=== PATIENT | female | born 1990 | race Caucasian/White ===

== ENCOUNTER 2021-01-22 15:25 | Outpatient (CLI) | payer OTHER, SELFPAY ==
[2021-01-22 16:20] LABS: Hematocrit 32.5 % (37.0-47.0); Hemoglobin 10.3 g/dL (12.0-15.0); Mean Corpuscular HGB Conc 31.7 g/dl (32-36); Mean Corpuscular Hemoglobin 26.2 pg (26-34); Mean Corpuscular Volume 82.7 fl (80-100); Mean Platelet Volume 9.3 fl (7.4-10.4); Platelet Count Result 322 k/mm3 (150-375); Red Blood Count 3.93 M/mm3 (4.2-5.4); Red Cell Distribution Width 15.6 % (11.5-14.5)
[2021-01-23 08:39] LABS: Rapid Plasma Reagin Non-Reactive (NonReactive)
== END 2021-01-22 15:26 | disposition home or self-care (01) ==
PROVIDERS: PCP Obstetrics & Gynecology; Visit Provider Obstetrics & Gynecology
DX: Z34.93 Encounter for supervision of normal pregnancy, unspecified, third trimester (principal); Z3A.00 Weeks of gestation of pregnancy not specified
CPT/HCPCS: 36415; 85027; 86592; 86850; 86900; 86901

== ENCOUNTER 2021-01-23 10:12 | Inpatient (IN) | payer OTHER, SELFPAY ==
[2021-01-23] VITALS (41 sets, daily range): BP systolic 90–116; BP diastolic 39–66; PULSE 62–100; RESP 14–20; TEMP 36.2–36.4; O2SAT 94–100; BMI 29.4
--- NOTE | 2021-01-23 06:00 | PM.IMHP ---
H&P: [facility] History of Present Illness Date/Time: 01/23/21 06:00 30 y/o F at 39w4d gestation w/ complicated by malpresentation with transverse lie, genital herpes, hypothyroidism, and mild polyhydramnios and adjustment disorder with depressed mood presents for primary low transverse c section under spinal anesthesia on 01/23/21@1200noon I explained her condition procedure and risks involved including but not limited to bleeding infection injury to bladder or bowel baby pelvic vessels DVT pneumonia wound infection endometritis UTI and the risk of anesthesia she understands all this except and agrees to proceed. Informed consent obtained. Chief Complaint: malpresentation transverse lie term elective primary low-transverse section Review of Systems Review of Systems: All systems reviewed & are unremarkable except as noted in HPI and below Constitutional: Constitutional: Reports no additional constitutional complaints Eyes: Eyes: Reports no additional eye complaints ENT: Reports system reviewed and no additional complaints, except as documented Cardiovascular: Cardiovascular: Reports no additional cardiovascular complaints Respiratory: Respiratory: Reports no additional respiratory complaints Gastrointestinal: Gastrointestinal: Reports no additional gastrointestinal complaints Genitourinary: Genitourinary: Reports no additional female genitourinary complaints Musculoskeletal: Musculoskeletal: Reports no additional musculoskeletal complaints Integumentary/Breasts: Skin/Breast: Reports system reviewed and no additional complaints, except as docu Neurologic: Reports system reviewed and no additional complaints, except as documented Psychiatric: Psychiatric: Reports no additional psychiatric complaints Endocrine: Endocrine: Reports no additional endocrine complaints Hematologic/Lymphatic: Hematologic/Lymphatic: Reports no additional hematologic/lymphatic complaints Allergic/Immunologic: Allergic/Immunologic: Reports no additional allergic/immunologic complaints [facility] Past Medical History Medical History (Updated 01/23/21 @ 06:13 by Emigdio Huston MD) BV (bacterial vaginosis) Depression NICOL (generalized anxiety disorder) History of miscarriage 12/08/20185733882Igxikgbq, Spontaneous HSV (herpes simplex virus) infection Hypothyroidism Malpresentation of fetus Neuroma of right lower extremity after surgery Polyhydramnios Vaginal delivery 02/07/20151408 lbs.10.99 oz.MStandard Vaginal DeliveryFull Term [facility]Reg[facility] Ped[facility] was born in [place] Vaginal delivery Spontaneoushistorical 11/10/2019139.68 lbs.13 oz.MVaginalFull Term BirthWorthington [facility] CenterEpiduralWestern [facility] HospitalN Surgical History Surgical History (Updated 01/23/21 @ 06:13 by Emigdio Huston MD) History of dilatation and curettage 12/08/2018 Family History Family History Other Carcinoma of colon Cerebrovascular accident Depression Diabetes mellitus Heart disease Hypertension Social History Social History Smoking status: Never smoker Alcohol intake: former Alcohol use details: socially when not Substance use: never Living arrangements: with family Occupation/Education: unemployed Gender identity (if verbalized by the patient): Female Sexual Orientation (if Verbalized by the Patient): Straight or Heterosexual Spiritual care concerns: No Agree to blood products: Yes Meds Home Medications and Allergies Home Medications Medication Instructions Recorded Confirmed Type PNV no.[id number] See Rx Instructions .ROUTE .COMPLEX 01/17/21 01/17/21 History [ Gummies] aspirin 81 mg PO BID 01/17/21 01/17/21 History folic acid 1 mg PO DAILY 01/17/21 01/17/21 History levothyroxine 88 mcg PO DAILY 01/17/21
--- NOTE | 2021-01-23 06:08 | WPDHPUPDATE1 ---
History and Physical Update Update Date/Time: 01/23/21 06:08 History and Physical has been reviewed, including an updated exam of the patient. There are NO changes in the patient's condition. Risks, benefits, and alternatives have been discussed and questions answered. Patient agrees to proceed with procedure. 30 y/o F at 39w4d gestation w/ complicated by malpresentation with transverse lie, genital herpes, hypothyroidism, and mild polyhydramnios and adjustment disorder with depressed mood presents for primary low transverse c section under spinal anesthesia on 01/23/21@1200noon I explained her condition procedure and risks involved including but not limited to bleeding infection injury to bladder or bowel baby pelvic vessels DVT pneumonia wound infection endometritis UTI and the risk of anesthesia she understands all this except and agrees to proceed. Informed consent obtained.
--- NOTE | 2021-01-23 06:08 | WPDOBADMIT ---
Obstetrics - Admit Note Admission Note: record reviewed. No pertinent additions to the history and/or any subsequent changes in the physical findings that are not consistent with the expected course of the were found. Additions to the history and/or subsequent changes in the physical findings follow. None. 30 y/o F at 39w4d gestation w/ complicated by malpresentation with transverse lie, genital herpes, hypothyroidism, and mild polyhydramnios and adjustment disorder with depressed mood presents for primary low transverse c section under spinal anesthesia on 01/23/21@1200noon I explained her condition procedure and risks involved including but not limited to bleeding infection injury to bladder or bowel baby pelvic vessels DVT pneumonia wound infection endometritis UTI and the risk of anesthesia she understands all this except and agrees to proceed. Informed consent obtained.
--- NOTE | 2021-01-23 11:08 | LDADM ---
This patient, Samantha Lovelace, was admitted to OB Post 116 on 01/23/21 at 10:12. Plans for labor, pain management and were discussed with patient. Patient/family oriented to hospital policies and general routines including ID bracelet, bed and alarms, visiting hours, pain management, procedures, bathroom and other care routines, personal items, smoking policy, room service/diet and guest tray routines, security routines, and visiting hours. Patient/Family are encouraged to report perceived risks to care and to ask questions if they do not understand what they are told or what they should do. See OBIX for further documentation.
[2021-01-23] MEDS: LACTATED RINGERS 1,000 ML 125 ML IV CONT ×2 (11:12→13:30)
--- NOTE | 2021-01-23 11:51 | WPDANESEPPF ---
Anes - Initial Pre Proc Eval Procedure: Operation Date: 01/23/21 12:00 Proposed Procedures p Primary Section - Emigdio Huston MD Date/Time: 01/23/21 11:51 Surgeon: Emigdio Huston MD Pre Op Diagnosis: c/s Patient Data Age: 30 Gender: F Height: 5 ft 2 in Weight: 73 kg Last Vital Signs Pulse 100 01/23/21 10:48 BP 116/63 01/23/21 10:48 Allergies Allergy/AdvReac Type Severity Reaction Status Date / Time No Known Allergies Allergy Verified 01/17/21 13:06 Home Medications Medication Instructions Recorded Confirmed Type PNV no.[id number] See Rx Instructions .ROUTE .COMPLEX 01/17/21 01/23/21 History [ Gummies] aspirin 81 mg PO BID 01/17/21 01/23/21 History folic acid 1 mg PO DAILY 01/17/21 01/23/21 History levothyroxine 88 mcg PO DAILY 01/17/21 01/23/21 History progesterone micronized 200 mg VAGINAL BID 01/17/21 01/23/21 History valacyclovir 800 mg PO DAILY 01/17/21 01/23/21 History Laboratory Tests 01/23/21 10:55 HIV 1&2 Ab/P24 Ag 4thGn Pending Patient hx anesthesia problems: none Family hx anesthesia problems: none PMFSH Past Medical History Medical History BV (bacterial vaginosis) Depression NICOL (generalized anxiety disorder) History of miscarriage 12/08/20185054816Kdnckpfu, Spontaneous HSV (herpes simplex virus) infection Hypothyroidism Malpresentation of fetus Neuroma of right lower extremity after surgery Polyhydramnios Vaginal delivery 02/07/20151408 lbs.10.99 oz.MStandard Vaginal DeliveryFull Term BirthRegionalEpiduralRobert [facility] Tien Pedraza was born in [place] Vaginal delivery Spontaneoushistorical 11/10/2019139.68 lbs.13 oz.MVaginalFull Term BirthRegionalEpiduralMemorial [facility]N Surgical History Surgical History History of dilatation and curettage 12/08/2018 Family History Family History Other Carcinoma of colon Cerebrovascular accident Depression Diabetes mellitus Heart disease Hypertension Social History Social History Smoking status: Never smoker Alcohol intake: former Alcohol use details: socially when not Substance use: never Living arrangements: with family Occupation/Education: unemployed Gender identity (if verbalized by the patient): Female Sexual Orientation (if Verbalized by the Patient): Straight or Heterosexual Spiritual care concerns: No Agree to blood products: Yes Anes - Eval Final PreProcedure Day of Procedure 01/23/21 11:51 Patient weight: overweight Heart: regular rate and rhythm Lungs: clear to auscultation Airway: Mallampati scale class II Neurological: alert and oriented Last oral intake: >/= 8 hours ASA classification: II Emergent: no Anesthetic plan: proceed Anesthesia type and monitoring: regional spinal and standard monitoring Informed Consent: The patient's anesthetic plan and its attendant risks and benefits were discussed with the patient/family/POA. Questions were solicited and answers provided to the satisfaction of the patient/family/POA.
[2021-01-23 11:55] LABS: HIV 1/2 Ab P24 Ag Result Negative (Negative)
[2021-01-23] MEDS: OXYTOCIN 10 UNITS/ML VIAL IM (12:25)
--- NOTE | 2021-01-23 13:14 | P.PCNOB_ITS ---
OB - Delivery Note Procedure Delivery date: 01/23/21 Procedure: Procedures Operation Date: 01/23/21 12:00 Primary low-transverse section with delivery of viable male and placenta events: Polyhydramnios ( malpresentation transverse lie) Intrapartal events: None Induction method: none Delivery monitor: external FHT and external uterine Route of delivery: (Elective primary low-transverse section with delivery of viable male and placenta) Episiotomy description: None Laceration Description: None Specimen: Yes (Placenta, cord blood, cord gases) Quantitative Blood Loss (ml): 500 Anesthesia type: Spinal (Duramorph) Disposition: floor Complications: None Narrative: See operative [place] Baby Date of : 01/23/21 Time of : 12:23 Weeks of gestation at delivery: 39 Infant gender: Male (Yunier) Weight (pounds): 7 Weight (ounces): 14 presentation: transverse position: Transverse Placenta delivery description: Manual Removal and Normal Configuration cord vessel description: 3 Vessels score one minute: 8 score five minutes: 9 Narrative: Normal transition normal exam spontaneous respirations and cry taken to the nursery in stable condition
--- NOTE | 2021-01-23 13:18 | PM.PROC ---
Procedure Note - Detailed Date of procedure: 01/23/21 Pre-op diagnosis: c/s Term malpresentation-transverse lie Elective primary low-transverse section Hypothyroidism Polyhydramnios History of miscarriage NICOL Depression Post-op diagnosis: same (Term delivered viable male normal placenta) Procedure performed: Elective primary low-transverse section with delivery of viable male and placenta Description of procedure: Informed consent obtained patient was taken to the operating room where spinal anesthetic with Duramorph was given and the patient was placed in the supine position. A Crystal catheter was inserted. The abdomen was prepped and then draped in the usual sterile fashion with a traxi device utilized. Anesthesia Meter was used to confirm adequate analgesia. A time-out was performed. A Pfannenstiel incision was made to the skin and the abdomen was opened in layers using electrocautery the fascia was entered bilaterally undermined inferiorly and superiorly with the rectus muscles then in the midline. Vesicouterine peritoneal reflection was incised transversely a transverse incision was made to the uterus and extended bilaterally digitally. The position was being transverse was then converted into the vertex presentation with the vertex and being delivered via the uterine and abdominal incision and the nose and throat were bulb suction the cord was clamped and cut and the baby was handed to the nursery nurse in attendance. scores given were 8 and 9 baby born at 12:23 p.m. weighing 7 lb 14 oz 19 in long. The placenta was then delivered intact with a 3 vessel cord after cord gases and cord blood obtained. The uterus was externalized blood clots membranes removed from the intrauterine cavity. The uterus contracted well with Pitocin given intravenously as well as 10 units into the myometrium. The uterine incision was then repaired in 2 layers with 0 Vicryl in a running interlocking fashion and along the left lower uterine segment the uterine artery was controlled with several [id number] sutures and hemostasis resulted. The vesicouterine peritoneal reflection was reapproximated 0 Vicryl suture in a running fashion. Blood clots removed from the cul-de-sac and both lateral gutters. The uterus was returned to the peritoneal cavity the sponge needle and instrument counts correct. The anterior peritoneum and rectus muscles reapproximated midline with 0 Vicryl suture in a running fashion the fascia was then closed with 2. Quill S RS system bilaterally. The Juan's fascia was reapproximated 3 0 plain in a running fashion. The skin was closed with absorbable staple device IN SORB. Skin was covered with Dermabond and then a Mepilex dressing was placed across the incision the Crystal catheter was secured the patient was then taken to the recovery room stable condition the sponge needle instrument counts correct patient tolerated the procedure well. Implants: None Anesthesia: spinal (Duramorph) Surgeon: Emigdio Huston MD Manager Language: carpenter's assistant x2 Estimated blood loss (mL): 500 IV fluids (mL): 2,000 Urine output (mL): 300 Drains: No Packing: No Pathology: yes (Placenta, cord blood, cord blood gases) Complications: None Condition: stable Disposition: floor Findings: Viable male name is karlene born at 12:23 p.m. on 01/23/2020 spontaneous respirations and cry Apgars 8 and 9 at 1 and 5 minutes weight 7 lb 14 oz length 19 in normal transition normal exam taken to the nursery stable condition Placenta intact three-vessel cord Counts correct Complications none VTE prevention SCDs Antibiotic prophylaxis Ancef 2 g Uterus tubes ovaries normal hemostasis excellent along the uterine incision transverse upper abdomen clean Breast feeding Pulverizer Tender is Dr. Prajapati To recovery room stable condition
[2021-01-23] MEDS: ONDANSETRON INJ 4 MG/2 ML VIAL IV PUSH ×2 (13:31→16:56)
[2021-01-23] MEDS: OXYTOCIN 30 UNITS/NS 500 ML 30 UNITS/500 ML BAG 125 UNITS IV CONT (15:12)
[2021-01-23] MEDS: KETOROLAC 30 MG/ML VIAL (*BKC) IV PUSH ×2 (15:14→21:18)
--- NOTE | 2021-01-23 15:27 | PC.NURSE ---
Patient transferred to post room #290 per stretcher from labor and delivery. Support person present. Oriented to unit, room, information board, rooming in, admission packet and security measures. Patient verbalizes understanding.
[2021-01-23] MEDS: HYDROcodone/acetaminophen (*CRX) 5-325 MG TABLET 1 TAB PO (17:43)
[2021-01-23] MEDS: DEXTROSE 5%/0.45% SOD CHL 1,000 ML 125 ML IV CONT (20:09)
[2021-01-24] VITALS: BP 111/51; PULSE 88; RESP 18; TEMP 37.1; O2SAT 96
[2021-01-24] MEDS: KETOROLAC 30 MG/ML VIAL (*BKC) IV PUSH (03:19)
[2021-01-24 04:36] VITALS: BP 114/77; PULSE 79; PULSE 88; RESP 18; TEMP 36.9; O2SAT 96; O2SAT 98
[2021-01-24 06:00] LABS: Basophils Percent Auto 0.2 % (0.2-1.2); Eosinophils Absolute Auto 0.1 K/mm3 (0-0.3); Eosinophils Percent Auto 0.8 % (0-4.4); Hematocrit 25.1 % (37.0-47.0); Hemoglobin 7.6 g/dL (12.0-15.0); Immature Granulocyte Absolute 0.07 K/mm3 (0.00-0.031); Immature Granulocyte Percent A 0.6 % (0-0.5); Lymphocytes Absolute Auto 1.39 K/mm3 (0.9-3.2); Lymphocytes Percent Auto 11.8 % (18.3-44.2); Mean Corpuscular HGB Conc 30.3 g/dl (32-36); Mean Corpuscular Hemoglobin 26.1 pg (26-34); Mean Corpuscular Volume 86.3 fl (80-100); Mean Platelet Volume 9.8 fl (7.4-10.4); Monocytes Absolute Auto 1.2 K/mm3 (0.1-0.6); Monocytes Percent Auto 10.4 % (2.6-8.5); Neutrophils Percent Auto 76.2 % (45.5-73.1); Platelet Count Result 245 k/mm3 (150-375); Red Blood Count 2.91 M/mm3 (4.2-5.4); Red Cell Distribution Width 15.8 % (11.5-14.5); White Blood Count 11.8 K/mm3 (4.5-10.0)
[2021-01-24] MEDS: LEVOTHYROXINE SODIUM 88 MCG TABLET PO (07:19)
--- NOTE | 2021-01-24 07:38 | PM.OBPNVD ---
OB - PN: Subj Subjective Date/time seen: 01/24/21 07:38 Interval history: POD1 primary c/section for malpresentation transverse lie Patient comments: no complaints, pain well controlled and tolerating diet [place] baby status: doing well and nursing well [place] feeding status: exclusively breast feeding OB - PN: Obj Data Labs CBC & Chem 7: 01/24/21 03:59 Labs: Laboratory Results - last 24 hr 01/23/21 01/23/21 01/24/21 10:55 10:55 03:59 WBC 11.8 H RBC 2.91 L Hgb 7.6 L Hct 25.1 L MCV 86.3 MCH 26.1 MCHC 30.3 L RDW 15.8 H Plt Count 245 MPV 9.8 Immature Gran % (Auto) 0.6 H Neut % (Auto) 76.2 H Lymph % (Auto) 11.8 L Cook % (Auto) 10.4 H Eos % (Auto) 0.8 Baso % (Auto) 0.2 Lymph # (Auto) 1.39 Cook # (Auto) 1.2 H Eos # (Auto) 0.1 Baso # (Auto) 0.0 Abs Immat Gran (auto) 0.07 H Absolute Neuts (auto) 9.0 H Absolute Nucleated RBC 0.0 Nucleated RBC % 0.0 Urine Opiates Screen Cancelled Urine Methadone Screen Cancelled Ur Barbiturates Screen Cancelled Ur Phencyclidine Scrn Cancelled Ur Amphetamine Screen Cancelled U Benzodiazepines Scrn Cancelled Urine Cocaine Screen Cancelled U Cannabinoids Screen Cancelled HIV 1&2 Ab/P24 Ag 4thGn Negative OB - PN A/P Assessment and Plan (1) Term delivered: Code(s): O80 - Encounter for full-term uncomplicated delivery Status: Acute (2) Delivery by elective section: Code(s): O82 - Encounter for delivery without indication Status: Acute (3) Malpresentation of fetus: Code(s): O32.9XX0 - Maternal care for malpresentation of fetus, unspecified, not applicable or unspecified Status: Acute Time Spent With Patient Time: Total time spent is greater than 50% in coordination of care (as documented) at patient's floor/unit and/or counseling patient: Review of Systems Review of Systems: All systems reviewed & are unremarkable except as noted in HPI and below Exam Const: General: cooperative, healthy appearing, comfortable, no acute distress, well developed, alert, awake and Physically active Nutritional Appearance: average body habitus and well nourished Orientation/consciousness: patient oriented x3 Limitations: no limitations HENMT: Head: normal to inspection Eyes: General: appearance normal, both eyes and all related structures Neck: Neck: normal visual inspection Chest: Chest palpation & inspection: normal inspection of the chest Resp: Effort & Inspection: normal respiratory effort Cardio: Rate: regular rate Rhythm: regular rhythm GI: Inspection: normal to inspection and incision (DDI) GI Palp: Yes Soft to palpation Percussion: Yes normal to percussion Auscultation: normal bowel sounds : External Female Exam: normal external appearance Back/Spine/Pelvis: Back: no CVA tenderness Skin: General skin exam: normal color Neuro: General: patient oriented x3, gait normal, tone normal and moves all extremities Extrem: General: normal to inspection, full ROM, no clubbing, cyanosis or edema and no calf tenderness Psych: Appearance: grossly normal Mental Status: mental status grossly normal Speech and movement: Normal speech and movement present Affect: normal affect Attitude: cooperative Thought process: Normal thought process present Thought content: Yes Normal thought content present Insight: Good insight present (Psych) Judgement: Good judgement present (Psych)
[2021-01-24 07:50] VITALS: BP 106/58; PULSE 92; RESP 18; TEMP 37.2; O2SAT 100
--- NOTE | 2021-01-24 07:53 | WPDANLDPN2 ---
Anes-Prog Note L&D Date/Time: 01/24/21 07:53 Comfortable throughout: section Neuraxial method: spinal Epidural/Spinal procedure site: clean & non-tender Neuro status: Neuro function grossly intact. Cardiovascular status: normal Respiratory status: normal Airway patency: baseline Mental status: baseline Post-Op hydration status: normal Vital Signs: Last Vital Signs Temp 36.9 C 01/24/21 04:36 Pulse 88 01/24/21 04:36 Resp 18 01/24/21 04:36 BP 114/77 01/24/21 04:36 Pulse Ox 98 01/24/21 04:36 Pain score (VAS): 3 I/O: Intake & Output 01/23/21 01/23/21 01/24/21 15:59 23:59 07:59 Intake Total 2000 500 2200 Output Total 300 446 8156 Balance 1700 325 400 Post-procedural complaints: none Patient feedback: Patient satisfied with anesthetic care.
--- NOTE | 2021-01-24 07:53 | WPDANLDNPN2 ---
Anes-Prog Note L&D-Neuraxial Date/Time: 01/24/21 07:53 Neuraxial medications: intrathecal PF morphine Opiod-related complaints: none Patient feedback: Patient satisfied with post-operative pain management.
[2021-01-24] MEDS: HYDROcodone/acetaminophen (*CRX) 10-325 MG TABLET 1 TAB PO ×2 (08:50→20:55)
[2021-01-24] MEDS: MULTIVIT/MIN/PREN/FOL AC/IRON TABLET 1 TAB PO (08:51)
[2021-01-24] MEDS: POLYSACCHARIDE IRON COMPLEX 150 MG CAPSULE PO ×2 (08:51→17:30)
[2021-01-24] MEDS: DOCUSATE SODIUM 100 MG CAPSULE PO ×2 (08:51→17:30)
[2021-01-24] MEDS: ACYCLOVIR 400 MG TABLET 800 MG PO (08:52)
[2021-01-24] MEDS: ASPIRIN 81 MG CHEWABLE TABLET PO ×2 (08:52→17:30)
[2021-01-24] MEDS: FOLIC ACID 1 MG TABLET PO (08:52)
[2021-01-24 09:00] VITALS: PULSE 92; RESP 18; O2SAT 100
[2021-01-24] MEDS: IBUPROFEN 600 MG TABLET PO ×2 (12:05→17:31)
[2021-01-24] MEDS: HYDROcodone/acetaminophen (*CRX) 5-325 MG TABLET 1 TAB PO ×2 (12:06→17:30)
[2021-01-24 12:30] VITALS: BP 105/57; PULSE 99; RESP 18; TEMP 36.5; O2SAT 100
[2021-01-24 20:55] VITALS: BP 109/70; PULSE 87; RESP 18; TEMP 36.6; O2SAT 100
[2021-01-25] MEDS: HYDROcodone/acetaminophen (*CRX) 10-325 MG TABLET 1 TAB PO (07:04)
[2021-01-25] MEDS: IBUPROFEN 600 MG TABLET PO ×2 (07:04→12:56)
[2021-01-25] MEDS: LEVOTHYROXINE SODIUM 88 MCG TABLET PO (07:04)
[2021-01-25 07:57] VITALS: BP 98/58; PULSE 100; RESP 18; TEMP 36.9; O2SAT 100
[2021-01-25 08:00] VITALS: PULSE 100; RESP 18; O2SAT 100
--- NOTE | 2021-01-25 08:04 | PM.OBDSVD ---
DS: Admitting Diagnosis Admitting Diagnosis Admitting Diagnosis: ) Term : Code(s): Z34.90 - Encounter for supervision of normal , unspecified, unspecified trimester Status: Acute (2) Malpresentation of fetus: Code(s): O32.9XX0 - Maternal care for malpresentation of fetus, unspecified, not applicable or unspecified Status: Acute (3) Polyhydramnios: Code(s): O40.9XX0 - Polyhydramnios, unspecified trimester, not applicable or unspecified Status: Acute (4) History of miscarriage: Code(s): Z87.59 - Personal history of other complications of , childbirth and the puerperium Status: Acute (5) Delivery by elective section: Code(s): O82 - Encounter for delivery DS: Discharge Diagnosis Discharge Diagnosis (1) Term delivered: Code(s): O80 - Encounter for full-term uncomplicated delivery Status: Acute (2) Delivery by elective section: Code(s): O82 - Encounter for delivery without indication Status: Acute (3) Malpresentation of fetus: Code(s): O32.9XX0 - Maternal care for malpresentation of fetus, unspecified, not applicable or unspecified Status: Acute (4) Transverse lie of fetus: Code(s): O32.2XX0 - Maternal care for transverse and oblique lie, not applicable or unspecified Status: Acute (5) History of miscarriage: Code(s): Z87.59 - Personal history of other complications of , childbirth and the puerperium Status: Acute (6) Polyhydramnios: Code(s): O40.9XX0 - Polyhydramnios, unspecified trimester, not applicable or unspecified Status: Acute OB - DS: Summary Hospital Course Time spent discussing smoking cessation with patient: 3 to 10 minutes OB Procedures : Ultrasound OB Procedures Intrapartum: (Primary elective) low cervical, transverse OB Procedures: : None Peripartum Data Infant Delivery Method: Section (Elective primary low-transverse) Laceration Description: None Episiotomy description: None Procedures: Procedures Operation Date: 01/23/21 12:00 Elective primary low-transverse section with delivery of viable male and placenta complications: none 1: Gender: Male (Yunier) Disposition of : home Status at Discharge Functional status at discharge: independent ambulation Overall status at discharge: patient is back to baseline Time Spent with Patient Time attestation: Total time spent providing and/or coordinating discharge services: Time spent: Less than 30 minutes Exam Const: General: cooperative, healthy appearing, comfortable, no acute distress, well developed, alert, awake and Physically active Nutritional Appearance: average body habitus Orientation/consciousness: patient oriented x3 Limitations: no limitations HENMT: Head: normal to inspection Eyes: General: appearance normal, both eyes and all related structures Neck: Neck: normal visual inspection Chest: Chest palpation & inspection: normal inspection of the chest Resp: Effort & Inspection: normal respiratory effort Cardio: Rate: regular rate Rhythm: regular rhythm GI: Inspection: normal to inspection and incision (Clean dry and intact dressing) GI Palp: Yes Soft to palpation (Abdomen) Percussion: Yes normal to percussion Auscultation: normal bowel sounds : External Female Exam: normal external appearance Bimanual exam- vagina & uterus: non-tender Back/Spine/Pelvis: Back: no CVA tenderness Skin: General skin exam: normal color Neuro: General: patient oriented x3, gait normal, tone normal, moves all extremities, Normal light touch and pain sensation, no meningeal signs and no focal motor deficits Extrem: General: normal to inspection, full ROM and no calf tenderness Psych: Appearance: grossly normal Mental Status: mental status grossly normal Sp
[2021-01-25] MEDS: ACYCLOVIR 400 MG TABLET 800 MG PO (10:54)
[2021-01-25] MEDS: ASPIRIN 81 MG CHEWABLE TABLET PO (10:54)
[2021-01-25] MEDS: POLYSACCHARIDE IRON COMPLEX 150 MG CAPSULE PO (10:55)
[2021-01-25] MEDS: DOCUSATE SODIUM 100 MG CAPSULE PO (10:55)
[2021-01-25] MEDS: FOLIC ACID 1 MG TABLET PO (10:55)
[2021-01-25] MEDS: MULTIVIT/MIN/PREN/FOL AC/IRON TABLET 1 TAB PO (10:57)
[2021-01-25] MEDS: HYDROcodone/acetaminophen (*CRX) 5-325 MG TABLET 1 TAB PO (12:56)
--- NOTE | 2021-01-25 14:25 | PC.NURSE ---
Patient was given the opportunity to view the discharge video Mother & Baby Care, The First Two Weeks and to ask questions. Patient declined viewing the video and has been given the mother/baby guide for home reference.
== END 2021-01-25 14:55 | disposition home or self-care (01) | DRG 540 ==
LOC: ANHOBPP 10:18 → ANHOB2 15:51
PROVIDERS: Admitting Provider Obstetrics & Gynecology; Visit Provider Obstetrics & Gynecology
PROC: 10D00Z1 Extraction of Products of Conception, Low, Open Approach (ICD-10-PCS; CPT 59514; principal; 2021-01-23 12:00)
DX: O32.2XX0 Maternal care for transverse and oblique lie, not applicable or unspecified (principal); Z37.0 Single live birth; Z3A.39 39 weeks gestation of pregnancy; O40.3XX0 Polyhydramnios, third trimester, not applicable or unspecified; O99.284 Endocrine, nutritional and metabolic diseases complicating childbirth; E03.9 Hypothyroidism, unspecified; O98.32 Other infections with a predominantly sexual mode of transmission complicating childbirth; B00.9 Herpesviral infection, unspecified; O99.344 Other mental disorders complicating childbirth; F41.1 Generalized anxiety disorder; F32.9 Major depressive disorder, single episode, unspecified
CPT/HCPCS: 36415; 85025; 86703; 88307; A9270; G0432; J0131; J1885; J2274; J2370; J2405; J2590; J7120

== ENCOUNTER 2025-03-17 08:05 | Emergency (ER) | payer OTHER, SELFPAY ==
--- NOTE | ~2025-03-17 | XR_ITS ---
EXAMINATION: XR foot LT min 3V, XR ankle LT min 3V DATE: 03/17/2025 08:39 INDICATION: Left foot and ankle injury post fall TECHNIQUE: 1. Anteroposterior, mortise, additional oblique and lateral view of the left ankle were obtained. 2. Dorsoplantar, two oblique and lateral views of the left foot were obtained. COMPARISON: None. FINDINGS: Alignment of the foot and ankle is normal. No fracture or osteochondral lesion. Joint spaces are well maintained. Moderate sized plantar calcaneal spur. No ankle joint effusion. The soft tissues are unr emarkable. IMPRESSION: 1. Large calcaneal spur. Otherwise unremarkable left foot and ankle radiographs. Reviewed, dictated and finalized at location A. IMPRESSION: 1. Large calcaneal spur. Otherwise unremarkable left foot and ankle radiographs .
--- OUTSIDE RECORDS SUMMARY | 2025-03-17 08:07 | XMS_ITS | Encounter Summary ---
Author Organization [facility] Healthcare Address [address] [place] [address] Care Team Providers Care Gas Maker Helper Name Role Phone Emigdio Huston MD Unavailable [phone] Unknown, Notinfile Unavailable Unavailable Jennifer Kirkpatrick MD Primary Care Provider [phone] Encounter Details Date Type Department Care Team (Late st Contact Info) Description 03/14/2025 Results Follow-Up [facility] Medical Group Diabetes and Endocrinology [address] [place] [phone] Adrianne Grady, STRAP BUCKLER MACHINE [address] [address] T4, free, TSH Social History Tobacco Use Types Packs/Day Years Used Date Smoking Tobacco: Never Smokeless Tobacco: Never Alcohol Use Standard Drinks/Week Comments No 0 (1 standard drink = 0.6 oz pur e alcohol) AUDIT-C Answer Date Recorded Q1: How often do you have a drink containing alc ohol? Never 12/28/2020 Average Number of Drinks Not on file 021 Frequency of Binge Drinking Not on file 12/15 PHQ-2 Answer Date Recorded PHQ-2 Total Score (If total score is 3 or more points, staff should administer the PHQ-9) 0 05/12/2021 Personal Safety Answer Date Recorded Have you ever been in or are you currently in a harmful physical or emotional relationship or is someone making you feel afraid or unsafe? Denies 06/28/2024 Comments No Sex and Gender Information Value Date Recorded Sex Assigned at Not on file Legal Sex Female 7:53 PM PHOTOGRAPHY INSTRUCTOR Gender Identity Not on file Sexual Orientation Not on file documented as of this encounter Miscellaneous Notes * Result Encounter Note - Adrianne Grady NP - 03/14/2025 12:07 PM CDT Laurel Singh, Good to see you yesterday. Your thyroid labs remain normal; and too low to increase the dose of levothyroxine. No changes at this time. Please call or send a [employer] message if any questions. Thank you, Adrianne Grady, JOHN-c documented in this encounter Plan of Treatment Not on file documented as of this encounter Visit Diagnoses Not on filedocumented in this encounter Care Teams Gas Maker Helper Relationship Specialty Start Date End Date Jennifer Kirkpatrick MD [address] [place] [address] PCP - General Internal Medicine 06/17/22 Emigdio Huston MD Obstetrics and Gynecology 12/28/20 Unknown, Notinfile 06/17/20 documented as of this encounter
--- OUTSIDE RECORDS SUMMARY | 2025-03-17 08:07 | XMS_ITS | Referral Summary ---
Author Organization [facility] Address [address] [place] [address] Care Team Providers Care Sales Expert Name Role Phone Emigdio Huston MD Unavailable [phone] Unknown, Notinfile Unavailable Unavailable Jennifer Kirkpatrick MD Primary Care Provider [phone] Encounters Date Type Department Care Team Description 03/14/2025 Results Follow-Up [facility] Medical Group Diabetes and Endocrinology [address] [place] [phone] Adrianne Grady NP T4, free, TSH 03/13/2025 2:48 PM CDT - 03/13/2025 11:59 PM CDT Hospital Encounter [place] [id number] Acquired hypothyroidism Discharge Disposition: Discharge to home or self care 03/13/2025 2:45 PM CDT Lab [facility] Medical Group Outpatient Lab at [address] [phone] 03/13/2025 2:00 PM CDT Office Visit [facility] Group Diabetes and Endocrinology [address] [place] [phone] Adrianne Grady NP Acquired hypothyroidism (Primary Dx) from Last 3 Months Allergies Active Allergy Reactions Criticality Noted Date Comments Spironolactone Rash Medium 08/29/2024 Medications Twirla 120-30 mcg/24 hr patch weekly APPLY 1 PATCH TOPICALLY TO THE SKIN EVERY WEEK FOR 21 DAYS 03/01/20 24 Active levothyroxine (SYNTHROID) 75 mcg tabletIndications: Acquired hypothyroidism Take 1 tablet (75 mcg total) by mouth daily 90 tablet 3 03/13/20 25 Active levothyroxine (SYNTHROID) 75 mcg tabletIndications: Acquired hypothyroidism Take 1 tablet (75 mcg total) by mouth daily 90 tablet 3 03/13/20 24 025 Discontin ued(Reord er) spironolactone (ALDACTONE) 50 mg tablet Take 2 tablets (100 mg total) by mouth daily 07/06/20 24 Discontin ued(Patie nt Reported) tretinoin (RETIN-A) 0.025 % cream Pea sized amount to entire face at night. 30 days supply. 04/11/20 24 025 Discontin ued(Patie nt Reported) Active Problems Problem Noted Date Diagnosed Date Localized adiposity of abdomen 01/02/2023 Rectus diastasis of lower abdomen 01/02/2023 Ventral hernia without obstruction or gangrene 0 02/09/2022 Assessment & Plan (01/06/2023 10:21 AM CDT): We have discussed with the patient the findings on the CT scan. She has a small fat containing umbilical hernia and a upper midline diastasis. We have discussed that a diastasis is not a true hernia but it can be contributing to some of the functional loss of the abdominal wall. We have discussed fixing the diastasis has mixed results but if successful this will gain her significant function of the abdominal wall domain as we will restore muscle to midline. If plastics is doing an abdominal plasty I favor to do an anterior plication of the anterior fascia bringing the rectus muscles back to midline and then incorporate the umbilical hernia defect into the closure. I am going to discuss this with plastics to make sure that this is acceptable to them. The patient is in understanding that her symptoms may not fully resolve after the procedure. She is aware of the fact that drains will likely need to be placed. Lifting restrictions will be given. Assessment & Plan (02/09/2022 3:02 PM CDT): No obstructive symptoms noted. Large diastasis with periumbilical hernia. Reviewed the CT scan which was from a year ago. After discussing with , we will obtain current imaging for surgical planning. There is a high possibility that this would require plastic surgeon for help with diastasis, but we will see what her current ct demonstrates and go from there. If obstructive symptoms occur, go to ER immediately. Acquired hypothyroidism 06/26/2020 Assessment & Plan (03/13/2025 2:40 PM CDT): Chronic problem. Currently taking levothyroxine 75mcg daily. Feels better with lower TSH. Discussed moving to daily plus 2 tabs on Tuesday if TSH is above 1.5 (would average out to 86mcg daily). Aware to take 1st thing in morning, 30-60 minutes before food/drink/other medications. Will update labs today. Verified that she uses mychart. Aware to check results/results letter in mychart. Will contact by phone if needed. Assessment & Plan (08/29/2024 2:32 PM CARDIAC REHAB NURSE): Chronic problem. Clinically & biochemically euthyroid. Currently taking levothyroxine 75mcg daily. Feels better with lower TSH. Discussed moving to daily plus 2 tabs on Tuesday if TSH is above 1.5 (would average out to 86mcg daily). Aware to take 1st thing in morning, 30-60 minutes before food/drink/other medications. Will update labs today. Verified that she uses mychart. Aware to check results/results letter in mychart. Will contact by phone if needed. Assessment & Plan (03/13/2024 2:31 PM CDT): Chronic problem. Clinically & biochemically euthyroid. Currently taking levothyroxine 75mcg daily. Aware to take 1st thing in morning, 30-60 minutes before food/drink/other medications. Will update labs today. Verified that she uses mychart. Aware to check results/results letter in mychart. Will contact by phone if needed. Assessment & Plan (07/14/2023 9:20 AM CDT): Chronic problem. Clinically euthyroid on current levothyroxine 75mcg daily. Aware to take 1st thing in morning, 30-60 minutes before food/drink/other medications. Will update TFTs today. Verified that she uses [employer] Aware to check results/results letter in [employer] Will contact by phone if needed. Assessment & Plan (12/28/2022 11:14 AM CDT): Risks of iatrogenic hyperthyroidism was discussed Advised on staying in 75 mcg daily To send me a message in 6-8 wks, if she starts having symptoms again; would try probably 75 mcg 6 days a week, 150 mcg on Sundays Assessment & Plan (06/17/2022 10:40 AM CDT): Chronic problem, not at goal. She has not been taking her LT4 so will not update labs today. I restarted her at 88 mcg per her preference, but discussed that if her TSH becomes suppressed again that she will need to decrease dose to avoid effects of iatrogenic hyperthyroidism which she understands. She will repeat labs in 3 months and f/u in 6. Assessment & Plan (05/12/2021 2:26 PM CDT): Thyroid function tests, including TSH and free T4 were requested Will adjust dose of Levothyroxine accordingly . If there is a need to make changes, will recheck levels in 2-3 months. Instructions to patient on taking medication properly : in the morning, on an empty stomach , 1 h part from food and/or other meds. Assessment & Plan (01/13/2021 2:19 PM CDT): Thyroid function tests, including TSH and free T4 were requested Will adjust dose of Levothyroxine accordingly . If there is a need to make changes, will recheck levels in 2-3 months. Instructions to patient on taking medication properly : in the morning, on an empty stomach , 1 h part from food and/or other meds. Assessment & Plan (09/25/2020 2:17 PM CARDIAC REHAB NURSE): Check TFT's Adjust dose of LT4 as indicated Assessment & Plan (06/26/2020 4:24 PM CDT): Goal of treatment is to normalize TSH Based on her weight, her levothyroxine requirements, in the absence of any thyroid hormone production, should be around 88 to 100 mcg I have requested TFTs to be done today and will contact the patient with adjustment on the dose of the levothyroxine I emphasized to the patient the need for her to take her levothyroxine on an empty stomach, at least 1 hour apart from food or any other medications Will recheck thyroid levels again in 4 weeks, after adjusting the dose of the thyroid medication Social History Tobacco Use Types Packs/Day Years [...] on file Legal Sex Female 7:53 PM CARDIAC REHAB NURSE Gender Identity Not on file Sexual Orientation Not on file Last Filed Vital Signs Vital Sign Reading Time Taken Comments Blood Pressure 110/78 03/13/2025 2:01 PM CDT Pulse 78 03/13/2025 2:01 PM CDT Temperature 37.2 C (99 F) 06/28/2024 10:29 AM CDT Respiratory Rate 16 03/13/2025 2:01 PM CDT Oxygen Saturation 100% 06/28/2024 10:29 AM CDT Inhaled Oxygen Concentration - - Weight 59.9 kg (132 lb) 03/13/2025 2:01 PM CDT Height 157.5 cm (5' 2.01) 03/13/2025 2:01 PM CD T Body Mass Index 24.14 03/13/2025 2:01 PM CDT Plan of Treatment Not on file Procedures Procedure Name Priority Date/Time Associated Diagnosis Comments TSH Routine 03/13/2025 2:48 PM CDT Acquired hypothyroidism T4, FREE Routine 03/13/2025 2:48 PM CDT Acquired hypothyroidism from Last 3 Months Results * TSH (03/13/2025 2:48 PM CDT) Thyroid Stimulating Hormone 0.55 0.30 - 4.20 mcIUnit/mL Blood 03/13/2025 2:48 PM CDT 03/13/2025 7:50 PM CDT Adrianneleilani Grady AIRPLANE RIGGER LAB BLOOD ORDERABLES Shilpa l Result Performing Organization Address City/[facility]/ZIP Co de Phone Number DIAZ BR[place] [address] [address] [employer] [place], [place] [phone] * T4, free (03/13/2025 2:48 PM CDT) Free T4 1.43 0.90 - 1.70 ng/dL Blood 03/13/2025 2:48 PM CDT 03/13/2025 7:50 PM CDT Adrianne Grady NP LAB BLOOD ORDERABLES Shilpa l Result DIAZ [address] [address] [place] [address] from Last 3 Months Insurance [facility] Care Teams Sales Expert Relationship Specialty Start Date End Date Jennifer Kirkpatrick MD [address] [place] [id number] PCP - General Internal Medicine 06/17/22 Emigdio Huston MD Obstetrics and Gynecology 12/28/20 Unknown, Notinfile 06/17/20
--- OUTSIDE RECORDS SUMMARY | 2025-03-17 08:07 | XMS_ITS | Clinical Summary ---
Author Organization [facility] Address [address] [place] [address] Care Team Providers Care Residential Real Estate Agent Name Role Phone Jennifer Kirkpatrick MD Primary Care Provider Source Comments [facility],non-owned Affiliates and Associated Physician Practices is amultiple site organization consisting of ambulatory clinics and hospital sitesin [place], [place], [place] and [place]. This disclosure is being madepursuant to the Care Everywhere program and may not contain all information available regarding this patient. Last updated 18.[facility] Allergies No known active allergies Medications * Be aware that medications may not be up to date on this document. Alwaysverify current medications with the patient. levothyroxine (Synthroid) 75 MCG tablet Take 1 (one) tablet by mouth once daily 03/13/2024 Active tretinoin (Retin-A) 0.025 % cream Pea sized amount to entire face at night. 30 days supply. 20 g 5 04/11/2024 Active spironolactone (Aldactone) 50 MG tablet TAKE 2 TABLETS BY MOUTH DAILY 60 tablet 4 07/06/2024 Active Social History Tobacco Use Types Packs/Day Years Used Date Smoking Tobacco: Never Assessed Comments Unknown Sex and Gender Information Value Date Recorded Sex Assigned at Not on file Legal Sex Female 10:26 AM CDT Gender Identity Not on file Sexual Orientation Not on file Plan of Treatment Health Maintenance Due Date Last Done Comments PAP SMEAR 1991 HIV SCREENING 2006 HEPATITIS C SCREENING 03/01/2009 DTAP/TDAP/TD VACCINES (1 - Tdap) 2010 HEPATITIS B VACCINE (1 of 3 - 19+ 3-dose series) 2010 COVID-19 VACCINE (2023-2 5 season) 2024 DEPRESSION SCREENING 10/17/2024 INFLUENZA VACCINE (Season Ended) 2025 ZOSTER VACCINE (1 of 2) 2041 HIB VACCINE Aged Out No longer eligi ble based on patient's age to complete this topic HPV VACCINE Aged Out No longer eligi ble based on patient's age to complete this topic MENINGOCOCCAL (Group B) VACC INE SHARED DECISION-MAKING Aged Out No longer eligibl e based on patient's age to complete this topic MENINGOCOCCAL GROUPS A/C/Y/W VACCINE Aged Out No longer eligible b ased on patient's age to complete this topic PNEUMOCOCCAL VACCINE Aged Out No long er eligible based on patient's age to complete this topic Insurance Care Teams Residential Real Estate Agent Relationship Specialty Start Date End Date Jennifer Kirkpatrick MD [address] [place] [address] PCP - General Internal Medicine 04/11/24
--- OUTSIDE RECORDS SUMMARY | 2025-03-17 08:07 | XMS_ITS | Clinical Summary ---
Author Organization [facility] Address [address] [place] [address] Care Team Providers Care Processing Specialist Name Role Phone Emigdio Huston MD Unavailable [phone] Unknown, Notinfile Unavailable Unavailable Jennifer Kirkpatrick MD Primary Care Provider [phone] Allergies Active Allergy Reactions Criticality Noted Date [...] mychart. Aware to check results/results letter in [facility] [employer]. Will contact by phone if needed. Assessment & Plan (08/29/2024 2:32 PM SENIOR STRATEGY MANAGER): Chronic problem. Clinically & biochemically euthyroid. Currently [...] update TFTs today. Verified that she uses mychart. Aware [...] meds. Assessment & Plan (09/25/2020 2:17 PM SENIOR STRATEGY MANAGER): Check TFT's Adjust dose of LT4 as [...] adjusting the dose of the thyroid medication Encounters Date Type Department Care Team Description 03/14/2025 Results Follow-Up [facility] Diabetes and Endocrinology [address] [place] [phone] Adrianne Grady NP T4, free, TSH 03/13/2025 2:48 PM CDT - 03/13/2025 11:59 PM CDT Hospital Encounter [address] [address] Acquired hypothyroidism Discharge Disposition: Discharge to home or self care 03/13/2025 2:[address] [facility] Medical Group Outpatient Lab at [address] [phone] 03/13/2025 2:00 PM CDT Office Visit [facility] Diabetes and Endocrinology [address] [place] [phone] Adrianen Grady NP Acquired hypothyroidism (Primary Dx) from Last 3 Months Surgical History Surgery Date Site/Laterality Comments SECTION Medical History Medical History Date Comments Hypothyroidism Family History Medical History Relation Name Comments Hypertension Father Hypertension; Migraines Father Diabetes Maternal Grandmother Diabete s mellitus; Diabetes Mother Relation Name Status Comments Father Maternal Grandmother Mother Social History Tobacco Use Types Packs/Day Years [...] on file Legal Sex Female 7:53 PM SENIOR STRATEGY MANAGER Gender Identity Not on file Sexual Orientation Not on file Obstetrics History Para Term AB IAB SAB Ectopic Multiple Livin g Live Births 4 2 2 0 1 0 0 0 Date Outcome GA Total Labor Labor/2nd/3rd Weight Sex Type Anes PTL Julianna A1 A5 Name Clin Term Term AB Comments 1 blighted ovum, 11 wk d&c Last Filed Vital Signs Vital Sign Reading [...] 03/13/2025 2:01 PM CDT Plan of Treatment Health Maintenance Due Date Last Done Comments Cervical Cancer Screening 1991 Hepatitis C Screening 1991 Varicella Vaccines (1 of 2 - 13+ 2-dose series) 2004 Hepatitis B Screening 2009 Regular Well Visit/Exam 18-64 2009 Depression Screening 05/12/2022 05/12/2021, 01/13/2021, 09/25/2020, Additional history exists Influenza Vaccine (Season Ended) 2025 DTaP/Tdap/Td Vaccine (2 - Td or Tdap) 08/14/2029 08/14/2019 HPV Vaccines Aged Out No longer eligi ble based on patient's age to complete this topic Pneumococcal vaccine <65 Aged Out No longer eligible based on patient's age to complete this topic Procedures Procedure Name Priority Date/Time Associated Diagnosis Comments TSH Routine 03/13/2025 2:48 PM CDT Acquired hypothyroidism T4, FREE Routine 03/13/2025 2:48 PM CDT Acquired hypothyroidism from Last 3 Months Results * TSH (03/13/2025 2:48 PM CDT) Thyroid Stimulating Hormone 0.55 0.30 - 4.20 mcIUnit/mL Blood 03/13/2025 2:48 PM CDT 03/13/2025 7:50 PM CDT us Adrianne Grady NP LAB BLOOD ORDERABLES Shilpa gage Result DIAZ [address] [address] [place] [address] * T4, free (03/13/2025 2:48 PM CDT) [facility] Free T4 1.43 0.90 - 1.70 ng/dL Blood 03/13/2025 2:48 PM CDT 03/13/2025 7:50 PM CDT us Adrianne Grady DIRECTORY ASSISTANCE OPERATOR LAB BLOOD ORDERABLES Shilpa gage Result Performing Organization Address City/State/ZIP Co in Phone Number DIAZ [address] [address] [place] [address] from Last 3 Months Insurance [facility] Care Teams Processing Specialist Relationship Specialty Start Date End Date Jennifer Kirkpatrick MD [address] [place] [id number] PCP - General Internal Medicine 06/17/22 Emigdio Huston MD Obstetrics and Gynecology 12/28/20 Unknown, Notinfile 06/17/20
[2025-03-17 08:12] VITALS: BP 118/68; PULSE 83; RESP 16; TEMP 36.6; O2SAT 100
--- NOTE | 2025-03-17 08:14 | ED.LOWEXIN ---
HPI - Extremity Injury (Lower) General Chief Complaint: Extremity Injury, Lower Stated Complaint: fall,left ankle Time Seen by Provider: 03/17/25 08:19 Source: patient, RN notes reviewed and old records reviewed Mode of arrival: ambulatory (crutches) Limitations: no limitations History of Present Illness HPI Narrative: 35 year old female who presents to [facility] with complaints of injury to her left ankle medial aspect and into her left foot medial and dorsal foot after falling off of [place] obstacle course ladder last evening around 6 in the evening. Patient reports that ladder was approximately 7 foot tall and she lost her balance and fell, is unsure if she twisted the foot and ankle. Patient reports that initially she could walk on the lateral aspect of her foot but pain has increased and unable to tolerate weight bearing to foot and ankle. Patient is using crutches to ambulate with no weight bearing to her left foot. Patient reports that she has been using ice and has taken Tylenol with last dose this morning. MD complaint: ankle injury (left medial) and foot injury (left medial) Onset (ago): day(s) (last evening around 6 pm) Place: street/outdoors Severity scale (1-10): 5 Exacerbating factors: weight bearing and movement Treatments prior to arrival: cold therapy and other (Tylenol) Related Data Home Medications ?Medication ?Instructions ?Recorded ?Confirmed ?Last Taken ?Type PNV 153-FA 400 mcg-om3 35 mg-dha See Rx Instructions .Route .COMPLEX 01/17/21 01/23/21 Unknown History 25 mg-epa 5 mg-fish oil chew tablet ( Gummies) folic acid 1 mg tablet 1 mg PO DAILY 01/17/21 01/23/21 Unknown History levothyroxine 88 mcg tablet 88 mcg PO DAILY 01/17/21 01/23/21 Unknown History valacyclovir 1 gram tablet 800 mg PO DAILY 01/17/21 01/23/21 Unknown History Allergies Allergy/AdvReac Type Severity Reaction Status Date / Time No Known Allergies Allergy Verified 01/17/21 13:06 Review of Systems Review of Systems: CONSTITUTIONAL: Denies fever, chills, or sweats. EYES: Denies visual changes, redness, or discharge. ENT: Denies rhinorrhea, congestion, sore throat, or otalgia. CARDIOVASCULAR: Denies chest pain, palpitations, or edema. RESPIRATORY: Denies cough or dyspnea. GASTROINTESTINAL: Denies abdominal pain, nausea, vomiting, or diarrhea. GENITOURINARY: Denies dysuria or hematuria. SKIN: Denies rash or itching. MUSCULOSKELETAL: Denies back pain,reports pain to medial aspect of left ankle and pain to medial and dorsal foot, or myalgia. NEUROLOGIC: Denies headache, numbness, or weakness. PSYCHIATRIC: Denies anxiety or depression. 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 Vaginal delivery Spontaneoushistorical 11/10/2019139.68 lbs.13 oz.MVaginalFull Term BirthRegcape [facility] Vaginal delivery 02/07/20151408 lbs.10.99 oz.MStandard Vaginal DeliveryFull Term BirthPhillips [facility] InstituteEpiduralNB[facility] Tien Pedraza was born in [place] BV (bacterial vaginosis) Depression NICOL (generalized anxiety disorder) Hypothyroidism HSV (herpes simplex virus) infection History of miscarriage 12/08/20180425013Fwhrzrmu, Spontaneous Polyhydramnios Malpresentation of fetus Surgical History Surgical History (Updated 03/17/25 @ 08:33 by Caren Mccormick NP) H/O section History of dilatation and curettage 12/08/2018 Family History Family History Other Carcinoma of colon Cerebrovascular accident Depression Diabetes mellitus Heart disease Hypertension Social History Social History Smoking status: Never smoker Alcohol intake: former Alcohol use details: socially when not Substance use: never Living arrangements: with family Occupation/Education: unemployed Gender identity (if verbalized by the patient): Female Sexual Orientation (if Verbalized by the Patient): Straight or Heterosexual Spiritual care concerns: No Agree to blood products: Yes Comments At time of signature, agree with nursing past medical, surgical, social and family history. There is no relevant family history pertinent to the presenting complaint Exam Narrative: GENERAL: Well-appearing, well-nourished, and in no acute distress. HEAD: Normocephalic, atraumatic. EYES: PERRLA and EOMI. ENT: Nares clear, no rhinorrhea or epistaxis. Mucous membranes moist. NECK: Supple. no lymphadenopathy CHEST: Clear to auscultation. No respiratory distress. SAO2 100% on room air HEART: Regular rate and rhythm. No murmur heard. Normal peripheral pulses. ABDOMEN: Soft, nontender, nondistended, normal active bowel sounds. EXTREMITIES: Normal range of motion. No edema.Exception noted to left foot and ankle with minimal swelling noted to the medial foot and ankle, no obvious deformity. Patient reports that she was able to ambulate on lateral side of foot last night but not tolerating any weight bearing to her left foot today has been using crutches today with non weight bearing to her left foot and ankle. Increased pain with attempted movement of foot and ankle. strong pedal pulse present, foot warm and pink, reports no tingling or numbness to her foot. SKIN: Warm, dry, no rash. NEURO: No focal deficits. Alert and oriented x3. Course Course Emergency Course: Patient is aware of diagnosis, understands and agrees to treatment plan.? Anticipatory guidance given.? Patient agrees to follow-up as directed and is aware of reasons to seek care at the emergency department. Portions of this record may have been created with voice recognition software Level of Care: Express Care Visit Vital Signs Vital signs: Vital Signs Temperature 36.6 C 03/17/25 08:12 Pulse Rate 83 03/17/25 08:12 Respiratory Rate 16 03/17/25 08:12 Blood Pressure 118/68 03/17/25 08:12 Pulse Oximetry 100 03/17/25 08:12 Oxygen Delivery Room Air 03/17/25 08:12 Temperature 36.6 C 03/17/25 08:12 Pulse Rate 83 03/17/25 08:12 Respiratory Rate 16 03/17/25 08:12 Blood Pressure 118/68 03/17/25 08:12 Pulse Oximetry 100 03/17/25 08:12 Oxygen Delivery Room Air 03/17/25 08:12 Reviewed MDM - Extremity Injury (Lower) Differential Diagnosis Differential diagnosis: Likely ankle sprain and strain, ankle fracture and other (foot sprain and strain, fracture foot. Pain left foot and ankle) Medical Records Attestation: I reviewed the patient's medical records. Imaging Data Attestation: I personally reviewed and interpreted this imaging study as follows: My impression: no fracture of left ankle or foot, large plantar calcaneal spur, no ankle joint effusion, soft tissue unremarkable Radiologist's impression: [facility] [place] [address] XRay Report Signed Patient: Samantha Lovelace : 1990 MR#: [id number] Age: 35 Acct:[id number] Loc: [facility] ADM Date: 03/17/25Attending Dr: Ordering Physician: Caren Mccormick APRN Date of Service: 03/17/25 Procedure(s): XR ankle LT min 3V; XR foot LT min 3V Accession Number(s): [id number]; [id number] cc: Caren Mccormick APRN; Casimiro, Jennifer GUNN~ EXAMINATION: XR foot LT min 3V, XR ankle LT min 3V DATE: 03/17/2025 08:39 INDICATION: Left foot and ankle injury post fall TECHNIQUE: 1. Anteroposterior, mortise, additional oblique and lateral view of the left ankle were obtained. 2. Dorsoplantar, two oblique and lateral views of the left foot were obtained. COMPARISON: None. FINDINGS: Alignment of the foot and ankle is normal. No fracture or osteochondral lesion. Joint spaces are well maintained. Moderate sized plantar calcaneal spur. No ankle joint effusion. The soft tissues are unremarkable. IMPRESSION: 1. Large calcaneal spur. Otherwise unremarkable left foot and ankle radiographs. Reviewed, dictated and finalized at location A. Please be advised this is a medical document. It is intended for gipy-nt-grox communication. It is written in medical language and may contain unfamiliar abbreviations or verbiage. Medical documents are intended to carry relevant information, facts as evident, and the clinical opinion of the practitioner at the time of the encounter. This report may have been done utilizing a voice recognition system. Attempts have been made to correct errors. However, there may be uncorrected grammatical, spelling, and recognition errors present. The file time of this note does not necessarily represent the time of service. Dictated By: Anurag Hagen MD 03/17/25 0842 Signed By: <Electronically signed by Anurag Hagen MD in OV> Critical Care Time Critical Care Time Critical Care Time: No Discharge Plan Discharge Clinical Impression: Ankle sprain and strain, Other sprain of left foot, initial encounter Patient Disposition: Home Condition: Stable Instructions: Antibiotic Form, Ankle Sprain (ED), Foot Sprain (ED) Additional Instructions: Elastic wrap or orthopedic splint( lace up) as directed for comfort for the next 5-7 days Crutches as directed if needed Tylenol for lesser pain Ibuprofen regularly for the next 2-3 days for the inflammation 400mg-- 600mg by mouth with food 3 times daily Follow-up with orthopedic surgeon if any further concerns Follow-up with PCP if further problems or concerns Ice to the area 20-30 minutes 4-6 times a day Elevate above heart If your symptoms persist, change or worsen significantly before you can contact your personal physician then please, without delay, go to the emergency department for further evaluation. Follow-up with PCP in 7-10 days or sooner if needed Patient Language: Bangladeshi Prescriptions: No Action folic acid 1 mg Tablet 1 mg PO DAILY levothyroxine 88 mcg Tablet 88 mcg PO DAILY Gummies 400 mcg-35 mg- 25 mg-5 mg Tablet,Chewable See Rx Instructions .ROUTE .COMPLEX Rx Instructions: one a day by mouth valacyclovir 1 gram Tablet 800 mg PO DAILY Follow-up/Referrals: Casimiro,MD Jennifer [Primary Care Provider] - Stand Alone Forms: Work/School Release IP Time of Disposition: 08:56 Quality Brenna Coma Scale Eyes: Open Verbal: Oriented and Alert Motor: Follows Commands Brenna Coma Total Score: 15
== END 2025-03-17 09:06 | disposition home or self-care (01) ==
PROVIDERS: Emergency Provider Registered Nurse; PCP Internal Medicine
DX: S93.402A Sprain of unspecified ligament of left ankle, initial encounter (principal); S96.912A Strain of unspecified muscle and tendon at ankle and foot level, left foot, initial encounter; S93.692A Other sprain of left foot, initial encounter; W11.XXXA Fall on and from ladder, initial encounter; E03.9 Hypothyroidism, unspecified
CPT/HCPCS: 73610; 73630; 99213; G0463